=== PATIENT | male | born 1955 | race Caucasian/White ===

== ENCOUNTER 2021-09-20 09:38 | Outpatient (CLI) | payer MEDICARE, OTHER ==
--- NOTE | 2021-09-20 11:07 | CT Report ---
PROCEDURE: Low Dose CT Lung Cancer Screen INDICATIONS: SMOKER TECHNIQUE: Noncontrast low-dose images were acquired from the pulmonary apices to the posterior costophrenic ang les. Multiplanar MIP reformats were then acquired. For radiation dose reduction, the following was used: automated exposure control, adjustment of mA and/or kV according to patient size. COMPARISON: None. FINDINGS: Image quality: Excellent. Lungs and pleura: Moderate pulmonary emphysema present with chronic interstitial changes. There is a peripheral left upper lobe calcified granuloma on image 4/199. No focal pulmonary nodules present. N o pneumothorax or pleural effusion. Mediastinum: Heart size is normal. Moderate coronary artery vascular calcification No pericardial ef fusion. No mediastinal adenopathy by size criteria. Thoracic aorta and central pulmonary arteries a re normal in size. Esophagus is normal in caliber. No hiatal hernia. Bones and chest wall: No suspicious bony lesions. No vertebral body compression fractures. No axil chelsie or supraclavicular adenopathy by size criteria. The thyroid is normal in size and there are no incidental findings. Abdomen: Visualized upper abdomen solid organs and bowel loops appear normal in the absence of contr ast. IMPRESSION: 1. Left upper lobe calcified granuloma. Otherwise, no focal dominant nodule. 2. Moderate pulmonary emphysema and chronic interstitial change. 3. Moderate coronary artery vascular calcification. Lung RADS category 1: Negative. Continue annual screening. Reviewed by: Rei Márquez MD on 09/20/2021 10:06 AM FRAN Approved by: Rei Márquez MD on 09/20/2021 10:06 AM FRAN Station ID: [id number]
== END 2021-09-20 09:39 | disposition home or self-care (01) ==
LOC: DI 09:38
PROVIDERS: ATTEND Internal Medicine
DX: Z12.2 Encounter for screening for malignant neoplasm of respiratory organs (principal); F17.210 Nicotine dependence, cigarettes, uncomplicated; R91.1 Solitary pulmonary nodule; J43.9 Emphysema, unspecified; I25.10 Atherosclerotic heart disease of native coronary artery without angina pectoris; J44.9 Chronic obstructive pulmonary disease, unspecified
CPT/HCPCS: 94060

== ENCOUNTER 2021-09-20 14:48 | Outpatient (CLI) | payer MEDICARE, OTHER ==
[2021-09-20] MEDS ORDERED: ALBUTEROL 1 PUFF INH STA (16:21)
== END 2021-09-20 14:49 | disposition home or self-care (01) ==
LOC: RT 14:48
PROVIDERS: ATTEND Internal Medicine
DX: J44.9 Chronic obstructive pulmonary disease, unspecified (principal)
CPT/HCPCS: 94060

== ENCOUNTER 2021-10-08 15:49 | Outpatient (CLI) | payer MEDICARE, OTHER ==
[2021-10-08 17:08] VITALS: BP 128/80
--- NOTE | 2021-10-08 17:08 | SLEEP CARE CONSULTATION ---
Information from patient questionnaire entered by Miguel Anglin MA. I have reviewed and concur with the information entered by Miguel Anglin MA. This document represents the service I personally performed and the decisions made by me, Lynn Barker ARNP. History of Present Illness Service Date and Time: 10/08/2021 1549 Reason for Visit: New patient (ONSET 09/04/2021, PREV ON CPAP, ), Previously diagnosed sleep apnea Accompanied by: Spouse Chief Complaint: reports: Other (update supplies, maybe) Usual bedtime: 830 PM Time it takes to fall asleep: 5 MINUTES Snores at night: Yes Observed to quit breathing while asleep: No Sleeps alone due to snoring: No Number of times waking at night: 1 Reasons for waking at night: reports: Bathroom Toss, Turn, or Twitch while sleeping: Yes Recalls having dreams: No Usually gets out of bed at: [id number] Feels refreshed in the morning: Yes Morning headache: No Sleepy or fatigued during the day: No Ever fallen asleep while driving: No Takes day naps: Yes Dreams during day naps: No Prior sleep studies: Yes Year and Where: 2013 [facility] Type of Sleep Study: Polysomnography Additional HPI information: I had the pleasure of seeing JASMYNE SERRANO today regarding the possibility of him having a sleep disorder. He has a history of being on a CPAP for sleep apnea syndrome. He moved here 2 years ago from [place] and he stopped using his CPAP about 2 months ago. He states he lost about 60 pounds in the last 5 years and he had a surgery to remove a large lump in his throat. His , who accompanies him, states his snoring has improved since this was removed. He tells me that he is sleeping better without the machine. He states he wakes up feeling rested. - Parasomnia Symptoms Ever been unable to move upon waking from sleep: No Walks in sleep: No Talks in sleep: No Ever acted out dreams in sleep: No Ever felt weak in the knees when startled or emotional: No Bothered by creepy, crawly, restless sensations in legs: No Problems with memory or concentration: Yes CPAP Compliance Data - Data Reviewed with Patient Average duration of nightly device use: 6 hours 14 minutes Compliance rate %: 55 (180 days) Current pressure setting (cmH2O): 4-20 Average residual AHI: 4.0 Central apnea: 0.0 Obstructive apnea: 1.5 Compliance data discussion: He was using a full face mask. He moved here 2 years from [place]. He has not changed his mask cushion in 2 years. He complained of having lots of mask leaks that would wake him up and have air blowing in his eyes. Subjective Patient concerns: reports: mask discomfort, air blowing in eyes, mask leak noise, dry mouth, nose, throat. denies: aerophagia, condensation in mask/hose, nasal congestion, epistaxis, other Observed to snore while using device: No Current pressure setting perceived as: comfortable On therapy, patient: reports: other (feels he is sleeping better since he stopped using the CPAP) Initial [place] Sleepiness Scale score: 3 (09/2021) Past Medical History Past Medical History: reports: Diabetes, Insulin resistance, Depression, Emphysema (COPD), Other (high cholesterol ) Social History The patient's occupation is a RE. Patient is and lives in [place]. Have you smoked in the past 12 months: Yes Cigarettes per day (20/pack): 20 Years of smokin Smoking Pack Years: 50.0 Alcohol use: No Caffeine use: Yes Caffeine amount and frequency: 5 X DAILY Family History Family history of sleep disordered breathing: No Family Hx Sleep Apnea: Mother: Snoring Allergies and Home Medications Drug allergies reviewed: Yes (NKDA) Home medication list reviewed: Yes Allergy and home medication list: Rosuvastatin 40 mg daily low dose aspirin Tamulosin Januvia Duloxetine Zinc Vitamin D3 Review of Systems Weight loss over past 5 years: 60 pounds Respiratory: reports: chronic cough Urinary: reports: impotence Psychiatric: reports: depression Musculoskeletal: reports: mobility problems (disc problem) Physical Exam Vital signs obtained and entered by: PHILLIP KURTZ Blood Pressure: 128/80 (RESP 18, PULSE 90, LEFT, ) Heart Rate: 91 O2 Saturation: 94 Height: 6 ft Weight: 190 lb Weight change since last visit: 50 LBS, DIABETES TREATMENT Body Mass Index: 25.7 BMI Classification: Overweight Neck circumference: 17 (INCHES) Heart: regular rate and rhythm Lungs: clear bilaterally Impression and Plan 1. Suspected Obstructive Sleep Apnea-Hypopnea Syndrome, as previously diagnosed in [place]. Patient does not know his sleep apnea severity. Patient states he does not think he needs the CPAP anymore because he is sleeping better without it. I do not have a copy of his last sleep study so I do not know this information. I recommended proceeding to polysomnography to confirm the diagnosis and to assess severity. Patient declined having another study done. He just wants to stop the CPAP therapy. He states he will come back if he feels symptoms are returning for a another sleep study. Patient has a [employer] Airsense machine that he does not want to keep and is asking us to dispose of it. I encouraged patient to do this himself but he left it behind. I reviewed his old data on the machine that we were able to pull showing him using pressures between 15 to 16 cmH2O with his residual AHI at 4.0. I again strongly recommended he go in for sleep study to verify any changes in his diagnosis severity but he declined again. Patient will call this office as needed for a follow-up. * Patient has decided to stop CPAP therapy * Call this office if any problems * Return for follow up as needed Visit Type: In Office Other Participants: Spouse/Significant Other Time Spent with Patient (minutes): 31 Provider Statement: I spent 100% of the Face to Face Visit with the patient with greater than 50% spent counseling the patient and coordination of care.
== END 2021-10-08 15:50 | disposition home or self-care (01) ==
LOC: SC 15:49
PROVIDERS: ATTEND Nurse Practitioner Family
DX: G47.33 Obstructive sleep apnea (adult) (pediatric) (principal); F17.210 Nicotine dependence, cigarettes, uncomplicated; E66.3 Overweight; Z68.25 Body mass index [BMI] 25.0-25.9, adult
CPT/HCPCS: 99203; G0463; 99212

== ENCOUNTER 2022-11-23 09:51 | Outpatient (CLI) | payer MEDICARE, OTHER ==
--- NOTE | 2022-11-23 14:19 | CT Report ---
PROCEDURE: Low Dose Lung Cancer Screen INDICATIONS: SMOKER TECHNIQUE: A CT scan of the chest was performed. Intravenous contrast media was not administered. Images were re corded and evaluated at appropriate window settings. Reformats: axial MIP of the chest, coronal and s agittal. For radiation dose reduction, the following was used: automated exposure control, adjustment of mA and/or kV according to patient size. COMPARISON: 09/20/2021. FINDINGS: Prior cancer history: Unsure. Lungs and pleura: No pleural effusions. No pneumothorax. At least moderate emphysema present. Redemo nstrated small lingular calcified granuloma. Nodules include: -Right middle lobe: 7 mm fissural nodule (), unchanged. Mediastinum: No pericardial effusion. Multivessel coronary calcifications present. Chest wall and lower neck: No axillary or supraclavicular adenopathy by size. Bones: No aggressive osseous abnormality. Upper Abdomen: Unremarkable. IMPRESSION: Lung RAD: 2 - Benign. Recommendation: Continue annual screening in 12 Months with LDCT Reviewed by: Reinier Robin MD on 11/23/2022 2:18 PM PDT Approved by: Reinier Robin MD on 11/23/2022 2:18 PM PDT Station ID: [id number]
== END 2022-11-23 09:52 | disposition home or self-care (01) ==
LOC: DI 09:51
PROVIDERS: ATTEND Student in an Organized Health Care Education/Training Program
DX: Z12.2 Encounter for screening for malignant neoplasm of respiratory organs (principal); F17.210 Nicotine dependence, cigarettes, uncomplicated; J43.9 Emphysema, unspecified; R91.8 Other nonspecific abnormal finding of lung field; I25.10 Atherosclerotic heart disease of native coronary artery without angina pectoris

== ENCOUNTER 2023-05-02 07:56 | Outpatient (CLI) | payer MEDICARE, OTHER ==
[2023-05-02 08:43] LABS: BASOPHILS # (AUTO) 0.1 10^3/uL (0.0-0.1); BASOPHILS % (AUTO) 1.4 %; EOSINOPHILS # (AUTO) 0.3 10^3/uL (0.0-0.7); EOSINOPHILS % (AUTO) 4.9 %; HGB - HEMOGLOBIN 17.3 g/dL (14.0-18.0); LYMPHOCYTES % (AUTO) 33.1 %; MEAN CORPUSCULAR HEMOGLOBIN 34.7 pg (27.0-31.0); MEAN CORPUSCULAR HGB CONC 33.3 g/dL (32.0-36.0); MEAN CORPUSCULAR VOLUME 104.4 fL (80.0-94.0); MEAN PLATELET VOLUME 9.4 fL (7.4-11.4); MONOCYTES # (AUTO) 0.5 10^3/uL (0.0-1.0); MONOCYTES % (AUTO) 8.4 %; NEUTROPHILS # (AUTO) 3.1 10^3/uL (1.5-6.6); PLT - PLATELET COUNT 169 10^3/uL (130-450); RED BLOOD COUNT 4.98 10^6/uL (4.70-6.10); RED CELL DISTRIBUTION WIDTH 15.2 % (12.0-15.0); WHITE BLOOD COUNT 5.9 x10^3/uL (4.8-10.8)
[2023-05-02 09:10] LABS: ALBUMIN 4.5 g/dL (3.2-5.5); CHOL/HDL RATIO 2.4 (<5.0); CHOLESTEROL 133 mg/dL; HDL CHOLESTEROL 56 mg/dL; LDL CHOLESTEROL,CALCULATED 60 mg/dL; LDL/HDL RATIO 1.1 (<3.6); TRIGLYCERIDES 85 mg/dL (48-352); VLDL CHOLESTEROL 17 mg/dL
[2023-05-02 09:21] LABS: THYROID STIMULATING HORMONE 2.34 uIU/mL (0.34-5.60)
[2023-05-02 09:32] LABS: ALBUMIN/GLOBULIN RATIO 1.9 (1.0-2.2); ALKALINE PHOSPHATASE 82 IU/L (42-121); ALT ALANINE AMINOTRANSFERASE 8 IU/L (10-60); AST ASPARTATE AMINOTRANSFERASE 9 IU/L (10-42); BILIRUBIN,TOTAL 0.8 mg/dL (0.2-1.0); BUN - BLOOD UREA NITROGEN 10 mg/dL (6-20); CALCIUM 9.7 mg/dL (8.5-10.3); CARBON DIOXIDE - CO2 31 mmol/L (21-32); CHLORIDE 105 mmol/L (101-111); GLUCOSE 117 mg/dL (74-104); SODIUM 140 mmol/L (135-145); TOTAL PROTEIN 6.9 g/dL (6.4-8.9)
[2023-05-02 10:01] LABS: CREATININE,URINE 135.8 mg/dL; MICROALBUM/CREATININE RATIO,UR 8.1 ug/mg (<30.0); MICROALBUMIN,URINE 1.1 mg/dL
[2023-05-02 10:47] LABS: CREATININE 1.2 mg/dL (0.6-1.3); GFR - MDRD 60 (>89)
[2023-05-02 14:51] LABS: ESTIMATED AVERAGE GLUCOSE 114 mg/dL (70-100); HEMOGLOBIN A1c% 5.6 % (4.27-6.07)
== END 2023-05-02 07:57 | disposition home or self-care (01) ==
LOC: LAB 07:56
PROVIDERS: ATTEND Nurse Practitioner
DX: E11.9 Type 2 diabetes mellitus without complications (principal); E78.5 Hyperlipidemia, unspecified; Z12.5 Encounter for screening for malignant neoplasm of prostate; N52.9 Male erectile dysfunction, unspecified; F41.9 Anxiety disorder, unspecified; F32.A Depression, unspecified
CPT/HCPCS: 36415; 80053; 80061; 82043; 82570; 83036; 84403; 84443; 85025; G0103; 83721; 84153

== ENCOUNTER 2023-11-24 07:02 | Outpatient (CLI) | payer MEDICARE, OTHER ==
[2023-11-24 10:42] LABS: ESTIMATED AVERAGE GLUCOSE 114 mg/dL (70-100); HEMOGLOBIN A1c% 5.6 % (4.27-6.07)
== END 2023-11-24 07:03 | disposition home or self-care (01) ==
LOC: LAB 07:02
PROVIDERS: ATTEND Nurse Practitioner
DX: E11.9 Type 2 diabetes mellitus without complications (principal)
CPT/HCPCS: 36415; 83036

== ENCOUNTER 2024-02-25 06:57 | Outpatient (CLI) | payer MEDICARE, OTHER ==
[2024-02-25 07:30] LABS: BASOPHILS # (AUTO) 0.1 10^3/uL (0.0-0.1); BASOPHILS % (AUTO) 1.5 %; EOSINOPHILS # (AUTO) 0.3 10^3/uL (0.0-0.7); EOSINOPHILS % (AUTO) 5.6 %; HCT - HEMATOCRIT 49.9 % (42.0-52.0); HGB - HEMOGLOBIN 16.7 g/dL (14.0-18.0); LYMPHOCYTES # (AUTO) 1.7 10^3/uL (1.5-3.5); LYMPHOCYTES % (AUTO) 36.9 %; MEAN CORPUSCULAR HGB CONC 33.5 g/dL (32.0-36.0); MEAN CORPUSCULAR VOLUME 104.6 fL (80.0-94.0); MONOCYTES # (AUTO) 0.4 10^3/uL (0.0-1.0); MONOCYTES % (AUTO) 9.3 %; NEUTROPHILS # (AUTO) 2.2 10^3/uL (1.5-6.6); NEUTROPHILS % (AUTO) 46.7 %; PLT - PLATELET COUNT 168 10^3/uL (130-450); RED BLOOD COUNT 4.77 10^6/uL (4.70-6.10); RED CELL DISTRIBUTION WIDTH 14.8 % (12.0-15.0); WHITE BLOOD COUNT 4.6 x10^3/uL (4.8-10.8)
[2024-02-25 07:32] LABS: CREATININE,URINE 135.5 mg/dL; MICROALBUM/CREATININE RATIO,UR 5.2 ug/mg (<30.0); MICROALBUMIN,URINE 0.7 mg/dL
[2024-02-25 07:32] LABS: ALBUMIN 4.1 g/dL (3.2-5.5); ALBUMIN/GLOBULIN RATIO 1.5 (1.0-2.2); ALKALINE PHOSPHATASE 70 IU/L (42-121); ALT ALANINE AMINOTRANSFERASE 23 IU/L (10-60); AST ASPARTATE AMINOTRANSFERASE 16 IU/L (10-42); BILIRUBIN,TOTAL 0.6 mg/dL (0.2-1.0); BUN - BLOOD UREA NITROGEN 13 mg/dL (6-20); CALCIUM 9.4 mg/dL (8.5-10.3); CARBON DIOXIDE - CO2 31 mmol/L (21-32); CHLORIDE 103 mmol/L (101-111); CHOL/HDL RATIO 2.8 (<5.0); CHOLESTEROL 133 mg/dL; CREATININE 1.2 mg/dL (0.6-1.3); GFR - MDRD 60 (>89); GLUCOSE 115 mg/dL (74-104); HDL CHOLESTEROL 47 mg/dL; LDL CHOLESTEROL,CALCULATED 67 mg/dL; LDL/HDL RATIO 1.4 (<3.6); POTASSIUM 4.7 mmol/L (3.5-4.5); SODIUM 138 mmol/L (135-145); TOTAL PROTEIN 6.8 g/dL (6.4-8.9); TRIGLYCERIDES 94 mg/dL; VLDL CHOLESTEROL 19 mg/dL
[2024-02-25 07:44] LABS: THYROID STIMULATING HORMONE 1.81 uIU/mL (0.34-5.60)
[2024-02-25 09:29] LABS: ESTIMATED AVERAGE GLUCOSE 111 mg/dL (70-100); HEMOGLOBIN A1c% 5.5 % (4.27-6.07)
== END 2024-02-25 06:58 | disposition home or self-care (01) ==
LOC: LAB 06:57
PROVIDERS: ATTEND Nurse Practitioner
DX: E78.5 Hyperlipidemia, unspecified (principal); R53.83 Other fatigue; E11.9 Type 2 diabetes mellitus without complications; Z12.5 Encounter for screening for malignant neoplasm of prostate
CPT/HCPCS: 36415; 80053; 80061; 82043; 82570; 83036; 84443; 85025; G0103; 83721; 84153